=== PATIENT | female | born 2000 | race Hispanic/Latino ===

== ENCOUNTER 2024-09-15 10:35 | Emergency (ER) | payer OTHER | END 2024-09-15 11:22 | disposition home or self-care (01) | LOC: MW.ED 10:35 | DX: Z77.098 Contact with and (suspected) exposure to other hazardous, chiefly nonmedicinal, chemicals (principal) | CPT/HCPCS: 99283 ==

== ENCOUNTER 2025-04-24 10:06 | Emergency (ER) | payer OTHER, BC ==
[2025-04-24] MEDS: Ondansetron 4 MG Tab.DIS PO ONE (10:51)
[2025-04-24] MEDS: Acetaminophen/HYDROcodone 325-5 MG Tab PO ONE (10:51)
== END 2025-04-24 11:53 | disposition home or self-care (01) ==
LOC: MW.ED 10:06
DX: S16.1XXA Strain of muscle, fascia and tendon at neck level, initial encounter (principal); Z75.3 Unavailability and inaccessibility of health-care facilities; V89.2XXA Person injured in unspecified motor-vehicle accident, traffic, initial encounter
CPT/HCPCS: 72125; 81025; 99284; A9270